=== PATIENT | male | born 1945 | race African-American/Black ===

== ENCOUNTER 2017-05-19 22:54 | Emergency (ER) | payer MEDICARE, MEDICAID ==
[~2017-05-19] VITALS: Ht 177.8 cm; Wt 90.7 kg
[~2017-05-19 22:54] MED LIST: IBUPROFEN600 MG ORAL; NKM; ROBITUSSIN COU118 M4 PO
[2017-05-20 00:11] LABS: BASOPHILS % (AUTO) 1.2 % (0.0-2.0); EOSINOPHILS % (AUTO) 2.6 % (0.0-3.0); LYMPHOCYTES % (AUTO) 38.3 % (20.0-45.0); MEAN CORPUSCULAR VOLUME 85 FL (80-99); MONOCYTES % (AUTO) 13.9 % (1.0-10.0); PLATELET COUNT 155 K/UL (150-450); RED BLOOD COUNT 4.28 M/UL (4.70-6.10); RED CELL DISTRIBUTION WIDTH 13.4 % (11.6-14.8); WHITE BLOOD COUNT 4.8 K/UL (4.8-10.8)
[2017-05-20 00:32] LABS: ANION GAP 13 (5-15); CALCIUM 8.6 mg/dL (8.6-10.2); CARBON DIOXIDE 26 mEQ/L (20-30); CHLORIDE 106 mEQ/L (98-107); GLOMERULAR FILTRATION RATE > 60 mL/min (>60); HEMOLYSIS 2; POTASSIUM 3.8 mEQ/L (3.4-4.9); SODIUM 145 mEQ/L (135-145)
[2017-05-20] MEDS ORDERED: FUROSEMIDE20 M1 ORAL (01:47)
--- NOTE | 2017-05-20 01:48 | Emergency Room Report ---
History of Present Illness General Chief Complaint: Edema Source: Patient Present Illness HPI Is a 71-year-old male with no significant past medical history. He is not on any medication. He presents with pedal edema for the last couple weeks. Worse with walking. No fever chills but no nausea no vomiting. No chest pain. Denies any other complaint. Allergies: Coded Allergies: No Known Allergies (Unverified , 05/16/16) Patient History Past Medical History: see triage record, old chart reviewed Past Surgical History: none Pertinent Family History: none Social History: Denies: drug use Immunizations: other Reviewed Nursing Documentation: PMH: Agreed, PSxH: Agreed Nursing Documentation-PMH Hx Cancer: Yes - Prostate cancer 2009 Review of Systems Eye: Denies: blurred vision, eye pain ENT: Denies: ear pain, nose congestion, throat swelling Respiratory: Denies: cough, shortness of breath Cardiovascular: Denies: chest pain, palpitations Gastrointestinal: Denies: abdominal pain, diarrhea, nausea, vomiting Musculoskeletal: Denies: back pain, joint pain Skin: Denies: rash Neurological: Denies: headache, numbness Endocrine: Denies: increased thirst, increased urine Hematologic/Lymphatic: Denies: easy bruising All Other Systems: negative except mentioned in HPI Physical Exam Vital Signs Date Time Temp Pulse Resp B/P Pulse Ox O2 Delivery O2 Flow Rate FiO2 05/19/17 23:17 98.2 52 16 167/71 98 Room Air vitals with hypertension Sp02 EP Interpretation: reviewed, normal General Appearance: well appearing, no apparent distress, alert Head: normocephalic, atraumatic Eyes: bilateral eye EOMI, bilateral eye PERRL ENT: hearing grossly normal, normal pharynx Neck: full range of motion, supple, no meningismus Respiratory: chest non-tender, lungs clear, normal breath sounds Cardiovascular #1: regular rate, rhythm, no murmur Gastrointestinal: normal bowel sounds, non tender, no mass, no organomegaly, no bruit, non-distended Musculoskeletal: back normal, gait/station normal, normal range of motion, other - 2+ pitting edema Neurologic: alert, oriented x3 Psychiatric: mood/affect normal Skin: warm/dry Medical Decision Making Diagnostic Impression: Primary Impression: Foot pain, bilateral Additional Impression: Peripheral edema ER Course Present with peripheral edema. No evidence of CHF, PE, DVT to name a few. He diuresed about 2 L after Lasix. Said he felt better. We'll discharge home. Rhythm Strip Diag. Results Rhythm Strip Time: 01:46 EP Interpretation: yes Rate: 86 Rhythm: NSR, no PVC's Chest X-Ray Diagnostic Results Chest X-Ray Ordered: Yes # of Views/Limited/Complete: 1 View Interpretation: no consolidation, no effusion, no pneumothorax Indication: Shortness of Breath Impression: No acute disease Date Electronically Signed: May 20, 2017 Time Electronically Signed: 01:47 Interpreting ER Physician: Leo Jaimes MD Last Vital Signs Date Time Temp Pulse Resp B/P Pulse Ox O2 Delivery O2 Flow Rate FiO2 05/20/17 00:00 99 22 Room Air 05/19/17 23:17 98.2 167/71 98 Status: improved Disposition: HOME, SELF-CARE Condition: Stable Scripts Furosemide* (LASIX*) 20 Mg Tablet 20 MG ORAL DAILY, #30 TAB Prov: LEO JAIMES M.D. 05/20/17 Referrals: NON PHYSICIAN (PCP) Patient Instructions: Peripheral Edema Additional Instructions: Followup with your DrGinny in 2-3 days. Return if symptom worsen. LEO JAIMES M.D. May 20, 2017 01:48
[2017-05-20 02:54] VITALS: BP 145/90
--- NOTE | 2017-05-20 13:08 | Diagnostic Imaging Report ---
Indication: SOB Technique: One view of the chest Comparison: 08/01/2016 Findings: Lungs and pleural spaces are clear. Heart size is normal. No significant change Impression: No acute process
== END 2017-05-20 02:30 | disposition home or self-care (01) ==
LOC: EMR 23:20
DX: M79.672 Pain in left foot (principal); M79.671 Pain in right foot; R60.0 Localized edema; Z85.46 Personal history of malignant neoplasm of prostate
CPT/HCPCS: 36415; 71010; 80048; 83880; 85025; 96374; 99284; J1940